=== PATIENT | male | born 1980 | race Caucasian/White ===

== ENCOUNTER 2016-10-12 16:16 | Emergency (ER) | payer OTHER ==
[~2016-10-12] VITALS: Ht 177.8 cm; Wt 80.5 kg
[2016-10-12 17:18] LABS: HEMATOCRIT 45.7 % (38.0-50.0); MCH 28.3 PG (29.0-34.0); MCHC 33.3 G/DL (30.0-36.0); MCV 85.1 FL (86-99); MEAN PLAT.VOLUME 8.9 uM^3 (9.0-12.4); PLATELET COUNT 274 K/uL (156-360); RBC DIS.WIDTH-CV 13.8 % (11.8-14.6); RBC DIS.WIDTH-SD 42.8 % (39-53); RED BLOOD COUNT 5.37 M/uL (4.00-5.50); WHITE BLOOD COUNT 7.9 K/uL (4.1-10.2)
[2016-10-12 17:27] LABS: CHLORIDE 100 mEq/L (99-109); POTASSIUM 3.5 mEq/L (3.7-5.4); SODIUM 141 mEq/L (136-147)
[2016-10-12 17:29] LABS: GLUCOSE 104 mg/dL (70-99)
[2016-10-12 17:30] LABS: ANION GAP 17 MEQ/L (2-14)
[2016-10-12 17:31] LABS: TOTAL BILIRUBIN 0.6 mg/dL (0.0-1.0)
[2016-10-12 17:32] LABS: SERUM ETHYL ALCOHOL 11 mg/dL
[2016-10-12 17:33] LABS: ALKALINE PHOSPHATASE 86 IU/L (3-129); GFR ESTIMATE (CALCULATED) > 59 mL/min/
[2016-10-12 17:34] LABS: UREA NITROGEN (BUN) 8 mg/dL (9-23)
[2016-10-12] MEDS ORDERED: ATIVAN1 MG PO (18:37)
[2016-10-12 18:41] VITALS: BP 180/112
== END 2016-10-12 18:42 | disposition home or self-care (01) ==
LOC: EME 16:16
PROVIDERS: Emergency Medicine
DX: F41.9 Anxiety disorder, unspecified (principal)
CPT/HCPCS: 80053; 81003; 85027; 90839; 99281; 99283; G0480

== ENCOUNTER 2016-10-13 08:56 | Emergency (ER) | payer OTHER ==
[~2016-10-13] VITALS: Ht 175.3 cm; Wt 80.6 kg
[~2016-10-13 08:56] MED LIST: ATIVAN1 MG PO
[2016-10-13 10:46] LABS: AMPHETAMINE NEGATIVE (500 ng/mL); BARBITURATES NEGATIVE (200 ng/mL); BENZODIAZEPINES NEGATIVE (150 ng/mL); COCAINE PRESUMPTIVE POSITIVE (150 ng/mL); INTERNAL CONTROLS VALID? YES; METHADONE NEGATIVE (200 ng/mL); METHAMPHETAMINE NEGATIVE (500 ng/mL); OPIATES (MORPHINE) NEGATIVE (100 ng/mL); OXYCODONE NEGATIVE (100 ng/mL); PHENCYCLIDINE NEGATIVE (25 ng/mL); PROPOXYPHENE NEGATIVE (300 ng/mL); THC CANNABINOIDS PRESUMPTIVE POSITIVE (50 ng/mL); TRICYCLIC ANTIDEPRESSANTS NEGATIVE (300 ng/mL)
[2016-10-13 10:47] LABS: ADD MEDTOX COMMENT Y
[2016-10-13 12:14] LABS: EOSINOPHIL (%) 0.8 % (0-5); EOSINOPHIL COUNT 0.1 K/uL (0-0.3); HEMATOCRIT 45.6 % (38.0-50.0); IMMATURE GRANULOCYTE (%) 0.1 % (0.0-0.7); INSTRUMENT ABS NEUTROPHIL CT 4.9 K/uL; LYMPHOCYTE COUNT 1.3 K/uL (1.0-2.8); MCH 28.4 PG (29.0-34.0); MCHC 32.7 G/DL (30.0-36.0); MEAN PLAT.VOLUME 9.2 uM^3 (9.0-12.4); MONOCYTE (%) 14.5 % (3-12); MONOCYTE COUNT 1.1 K/uL (0-0.8); NEUTROPHIL (%) 67.1 % (45-76); NEUTROPHIL COUNT 4.9 K/uL (1.8-6.4); PLATELET COUNT 264 K/uL (156-360); RBC DIS.WIDTH-CV 13.7 % (11.8-14.6); RBC DIS.WIDTH-SD 43.8 % (39-53); RED BLOOD COUNT 5.24 M/uL (4.00-5.50); WHITE BLOOD COUNT 7.3 K/uL (4.1-10.2)
[2016-10-13 12:17] LABS: CHLORIDE 101 mEq/L (99-109); SODIUM 138 mEq/L (136-147)
[2016-10-13 12:18] LABS: POTASSIUM 4.4 mEq/L (3.7-5.4)
[2016-10-13 12:19] LABS: GLUCOSE 99 mg/dL (70-99)
[2016-10-13 12:20] LABS: ANION GAP 9 MEQ/L (2-14)
[2016-10-13 12:22] LABS: SERUM ETHYL ALCOHOL < 10 mg/dL
[2016-10-13 12:23] LABS: GFR ESTIMATE (CALCULATED) > 59 mL/min/
[2016-10-13 12:24] LABS: UREA NITROGEN (BUN) 9 mg/dL (9-23)
[2016-10-13 13:30] VITALS: BP 138/74
[2016-10-13 14:25] LABS: ADD MIUA? YES; BILIRUBIN NEGATIVE; BLOOD SMALL; COLOR AMBER ((YELLOW)); GLUCOSE (STRIP) NEGATIVE; KETONES NEGATIVE; LEUKOCYTES NEGATIVE; NITRITE NEGATIVE; PROTEIN (STRIP) 30; SPECIFIC GRAVITY 1.027 (1.000-1.030)
[2016-10-13 14:34] LABS: BACTERIA RARE /HPF; CALCIUM OXALATE CRYSTALS 4+ /HPF; EPITHELIAL CELLS NONE SEEN /HPF; MUCUS TRACE /LPF; WHITE BLOOD CELLS 0-5 /HPF (0-5)
== END 2016-10-13 13:36 | disposition home or self-care (01) ==
LOC: EME 08:56
PROVIDERS: Emergency Medicine
DX: F90.9 Attention-deficit hyperactivity disorder, unspecified type (principal); F41.9 Anxiety disorder, unspecified
CPT/HCPCS: 80048; 81003; 84999; 85025; 90839; 99281; 99284; G0480

== ENCOUNTER 2016-10-15 20:44 | Inpatient (IN) | payer OTHER ==
[~2016-10-15] VITALS: Ht 177.8 cm; Wt 83.7 kg
[2016-10-15 23:38] LABS: HEMATOCRIT 41.7 % (38.0-50.0); MCH 28.3 PG (29.0-34.0); MCHC 32.6 G/DL (30.0-36.0); MCV 86.9 FL (86-99); MEAN PLAT.VOLUME 9.4 uM^3 (9.0-12.4); PLATELET COUNT 234 K/uL (156-360); RBC DIS.WIDTH-CV 13.4 % (11.8-14.6); WHITE BLOOD COUNT 6.1 K/uL (4.1-10.2)
[2016-10-15 23:50] LABS: ADD MEDTOX COMMENT Y; AMPHETAMINE NEGATIVE (500 ng/mL); BARBITURATES NEGATIVE (200 ng/mL); BENZODIAZEPINES PRESUMPTIVE POSITIVE (150 ng/mL); COCAINE NEGATIVE (150 ng/mL); INTERNAL CONTROLS VALID? YES; METHADONE NEGATIVE (200 ng/mL); METHAMPHETAMINE NEGATIVE (500 ng/mL); OPIATES (MORPHINE) NEGATIVE (100 ng/mL); OXYCODONE NEGATIVE (100 ng/mL); PHENCYCLIDINE NEGATIVE (25 ng/mL); PROPOXYPHENE NEGATIVE (300 ng/mL); THC CANNABINOIDS NEGATIVE (50 ng/mL); TRICYCLIC ANTIDEPRESSANTS NEGATIVE (300 ng/mL)
[2016-10-16 03:17] VITALS: BP 133/95
[2016-10-16 03:47] LABS: ANION GAP 16 MEQ/L (2-14); CHLORIDE 102 MEQ/L (99-109); GFR ESTIMATE (CALCULATED) > 59 mL/min/; GLUCOSE 82 mg/dL (70-99); POTASSIUM 3.9 MEQ/L (3.7-5.4); SAMPLE HEMOLYSIS CHECK 0; SAMPLE ICTERIC CHECK 0; SAMPLE LIPEMIA CHECK 0; SODIUM 138 MEQ/L (136-147); UREA NITROGEN (BUN) 8 mg/dL (9-23)
[2016-10-16 04:50] LABS: SERUM ETHYL ALCOHOL 54 mg/dL
[2016-10-16 05:34] LABS: BENZODIAZEPINES QUANT VALUE 0 NG/ML; BENZODIAZEPINES, URINE SCREEN Negative (200 ng/mL)
[2016-10-16 07:39] VITALS: BP 139/90
[2016-10-16 15:35] VITALS: BP 117/75
[2016-10-17 07:19] VITALS: BP 106/75
[2016-10-17 10:26] VITALS: BP 114/70
[2016-10-17 15:13] VITALS: BP 123/82
[2016-10-18 07:19] VITALS: BP 118/79
[2016-10-18 16:21] VITALS: BP 122/80
[2016-10-19 07:50] VITALS: BP 118/80
[2016-10-19 15:44] VITALS: BP 140/81
[2016-10-20 07:41] VITALS: BP 128/78
[2016-10-20] MEDS ORDERED: ZOLPIDEM TARTRAT5 MG PO (09:30)
[2016-10-20] MEDS ORDERED: HYDROXYZINE PAM50 MG PO (09:30)
[2016-10-20] MEDS ORDERED: DIVALPROEX SOD500 MG PO ×2 (09:30)
== END 2016-10-20 13:20 | disposition home or self-care (01) | DRG 885 ==
LOC: EME 20:44 → 1WEST 10-16 00:47 → EDOF 10-16 00:47 → 1WEST 10-16 00:47
PROVIDERS: Emergency Medicine
DX: F31.9 Bipolar disorder, unspecified (principal); F10.20 Alcohol dependence, uncomplicated; F22 Delusional disorders; F14.10 Cocaine abuse, uncomplicated; F12.10 Cannabis abuse, uncomplicated; Z79.899 Other long term (current) drug therapy
CPT/HCPCS: 80048; 80164; 84999; 85027; 90839; 99281; 99284; G0480; Q0177

== ENCOUNTER 2016-10-24 08:43 | Emergency (ER) | payer OTHER ==
[~2016-10-24] VITALS: Ht 177.8 cm; Wt 83.0 kg
[~2016-10-24 08:43] MED LIST changes: +DIVALPROEX SOD500 MG PO; +HYDROXYZINE PAM50 MG PO; +ZOLPIDEM TARTRAT5 MG PO
[2016-10-24] MEDS ORDERED: NAPROXEN500 MG PO (10:11)
[2016-10-24 10:41] VITALS: BP 130/81
== END 2016-10-24 10:42 | disposition home or self-care (01) ==
LOC: EME 08:43
DX: S83.422A Sprain of lateral collateral ligament of left knee, initial encounter (principal); X58.XXXA Exposure to other specified factors, initial encounter; Y93.H2 Activity, gardening and landscaping
CPT/HCPCS: 73564; 99281; 99283; J1885